=== PATIENT | female | born 1965 | race Caucasian/White ===

== ENCOUNTER 2016-12-21 14:09 | Emergency (ER) | payer OTHER ==
[~2016-12-21] VITALS: Ht 157.5 cm; Wt 45.5 kg
[2016-12-21 14:19] VITALS: BP 100/66
== END 2016-12-21 15:52 | disposition left against medical advice (07) ==
LOC: EMS 14:11
DX: Z00.8 Encounter for other general examination (principal); Z53.21 Procedure and treatment not carried out due to patient leaving prior to being seen by health care provider